=== PATIENT | female | born 2000 | race Caucasian/White ===

== ENCOUNTER 2023-08-06 15:17 | Emergency (ER) | payer OTHER ==
[2023-08-06 15:26] VITALS: BP 121/74; PULSE 68; RESP 18; TEMP 98.4; BMI 28.3
[2023-08-06 16:45] LABS: BASO % 0.4 % (0-2.0); EOS % 4.9 % (0-4.5); HEMATOCRIT 38.4 % (32.4-45.2); HEMOGLOBIN 13.5 GM/dL (10.7-15.3); LYMPH % 17.6 % (8-40); MCH 30.5 pg (25.7-33.7); MCHC 35.2 g/dl (32.0-36.0); MEAN CELL VOLUME 86.8 fl (80-96); MEAN PLT VOLUME 7.2 fl (7.5-11.1); MONO % 7.6 % (3.8-10.2); NEUT % 69.5 % (42.8-82.8); PLATELET COUNT 339 10^3/uL (134-434); RBC 4.42 M/mm3 (3.60-5.2)
[2023-08-06 16:46] LABS: PH,URINE 5.5 (5.0-8.0); URINE APPEARANCE CLOUDY; URINE BILIRUBIN NEGATIVE (NEGATIVE); URINE COLOR DK YELLOW; URINE GLUCOSE (UA) NEGATIVE (NEGATIVE); URINE KETONE NEGATIVE (NEGATIVE); URINE LEUK ESTERASE NEGATIVE (NEGATIVE); URINE NITRITE NEGATIVE (NEGATIVE); URINE PROTEIN NEGATIVE (NEGATIVE); URINE UROBILINOGEN 0.2 mg/dL (0.2-1.0)
[2023-08-06 16:49] LABS: HCG,QUALITATIVE URINE Negative
[2023-08-06 17:04] LABS: POTASSIUM 4.4 mmol/L (3.5-5.1)
[2023-08-06 17:06] LABS: BLOOD UREA NITROGEN 13.2 mg/dL (7-18); CALCIUM 8.9 mg/dL (8.5-10.1)
[2023-08-06 17:11] LABS: CREATININE 0.7 mg/dL (0.55-1.3)
[2023-08-06 17:12] LABS: BILIRUBIN,TOTAL 0.4 mg/dL (0.2-1); TOT PROT 7.8 g/dl (6.4-8.2)
== END 2023-08-06 18:38 | disposition home or self-care (01) ==
LOC: JER 15:17
DX: R10.2 Pelvic and perineal pain (principal); R10.32 Left lower quadrant pain
CPT/HCPCS: 36415; 76830-TC; 80053; 81003; 84703; 85025; 87086; 99284-25

== ENCOUNTER 2024-01-04 17:04 | Emergency (ER) | payer OTHER ==
[2024-01-04 17:11] VITALS: BP 104/71; PULSE 62; RESP 18; TEMP 98.4; BMI 25.6
== END 2024-01-04 18:48 | disposition home or self-care (01) ==
LOC: JERFT 17:04
DX: R06.02 Shortness of breath (principal); R51.9 Headache, unspecified; R05.9 Cough, unspecified; R53.83 Other fatigue; J40 Bronchitis, not specified as acute or chronic
CPT/HCPCS: 99283-25

== ENCOUNTER 2024-06-03 17:15 | Emergency (ER) | payer OTHER ==
[2024-06-03 17:32] VITALS: BP 116/73; PULSE 85; RESP 16; TEMP 98.7; BMI 25.6
[2024-06-03] MEDS ORDERED: diphenhydrAMINE HCL 25 MG CAPSULE (FP) PO ONE (17:57)
[2024-06-03] MEDS ORDERED: ALBUTEROL SO4 2.5/IPRATROPIUM 0.5 INH SOL 3 ML VIAL.NEB. NEB ONE (17:57)
[2024-06-03] MEDS ORDERED: DEXAMETHASONE 4 MG TABLET (FP) ONE (17:57)
[2024-06-03] MEDS: diphenhydrAMINE HCL 25 MG CAPSULE (FP) PO ONE (18:09)
[2024-06-03] MEDS: DEXAMETHASONE SOD PHOSPHATE 10 MG/1 ML VIAL PO ONE (18:09)
[2024-06-03] MEDS: ALBUTEROL SO4 2.5/IPRATROPIUM 0.5 INH SOL 3 ML VIAL.NEB. NEB ONE (18:09)
== END 2024-06-03 18:56 | disposition home or self-care (01) ==
LOC: JERFT 17:15
PROC: 3E0F7GC Introduction of Other Therapeutic Substance into Respiratory Tract, Via Natural or Artificial Opening (ICD-10-PCS; principal; 2024-06-03)
DX: R07.89 Other chest pain (principal); R05.9 Cough, unspecified; J45.909 Unspecified asthma, uncomplicated; Z20.822 Contact with and (suspected) exposure to COVID-19
CPT/HCPCS: 0241U-QW; 71046-TC-FY; 99284-25; J1100

== ENCOUNTER 2024-07-22 15:15 | Emergency (ER) | payer OTHER ==
[2024-07-22 15:49] VITALS: BP 107/70; PULSE 98; RESP 16; TEMP 98.6; BMI 24.7
[2024-07-22] MEDS ORDERED: DEXAMETHASONE SOD PHOSPHATE 10 MG/1 ML VIAL ONE (16:42)
[2024-07-22] MEDS: DEXAMETHASONE SOD PHOSPHATE 10 MG/1 ML VIAL IM ONE (16:51)
[2024-07-22] MEDS: ALBUTEROL SO4 2.5/IPRATROPIUM 0.5 INH SOL 3 ML VIAL.NEB. NEB SCH (16:51)
== END 2024-07-22 18:00 | disposition home or self-care (01) ==
LOC: JER 15:15 → JERFT 15:15
PROC: 3E023GC Introduction of Other Therapeutic Substance into Muscle, Percutaneous Approach (ICD-10-PCS; principal; 2024-07-22)
PROC: 3E0F7GC Introduction of Other Therapeutic Substance into Respiratory Tract, Via Natural or Artificial Opening (ICD-10-PCS; 2024-07-22)
DX: J98.01 Acute bronchospasm (principal); R07.89 Other chest pain; R06.02 Shortness of breath; R09.81 Nasal congestion; R05.9 Cough, unspecified
CPT/HCPCS: 99284-25; J1100